=== PATIENT | female | born 1975 ===

== ENCOUNTER 2016-11-25 06:35 | Emergency (ER) | payer OTHER ==
[2016-11-25 06:44] VITALS: TEMP 98
--- NOTE | 2016-11-25 07:41 | C.PDOC ---
History Of Present Illness 41-year-old female, presents to the emergency department with complaints of right ankle pain. Patient states she had an inversion ankle injury, this morning. Pain is persistent in nature, and worse with weight bearing. No medications taken for relief. Patient denies numbness/weakness, or any other associated symptoms. Time Seen by Provider: 11/25/16 07:09 Chief Complaint (Nursing): Lower Extremity Problem/Injury History Per: Patient History/Exam Limitations: no limitations Current Symptoms Are (Timing): Still Present Severity: Moderate - Ankle/Foot Description Of Injury: Twisted Past Medical History Reviewed: Historical Data, Nursing Documentation, Vital Signs Vital Signs: Last Vital Signs Temp 98 F 11/25/16 06:39 Pulse 85 11/25/16 09:14 Resp 18 11/25/16 09:14 BP 116/74 11/25/16 09:14 Pulse Ox 99 11/25/16 09:14 - Medical History PMH: No Chronic Diseases Surgical History: Family History: States: No Known Family Hx - Social History Hx Tobacco Use: No Hx Alcohol Use: No Hx Substance Use: No - Immunization History Hx Tetanus Toxoid Vaccination: No Hx Influenza Vaccination: No Hx Pneumococcal Vaccination: No Review Of Systems Constitutional: Negative for: Fever Respiratory: Negative for: Shortness of Breath Gastrointestinal: Negative for: Nausea, Vomiting Musculoskeletal: Positive for: Other (R ankle pain.). Negative for: Back Pain, Leg Pain Neurological: Negative for: Weakness, Numbness, Headache Physical Exam - Physical Exam Appears: Non-toxic, No Acute Distress Skin: Warm, Dry, No Rash Head: Atraumatic, Normacephalic Eye(s): bilateral: Normal Inspection Nose: Normal Oral Mucosa: Moist Lips: Normal Appearing Neck: Normal ROM Respiratory: No Accessory Muscle Use Extremity: Normal ROM, Capillary Refill (<2 seconds), No Deformity, Other ( Right lateral malleolus: Tenderness to palpation and swelling) Pulses: Left Dorsalis Pedis: Normal, Right Dorsalis Pedis: Normal Neurological/Psych: Oriented x3, Normal Speech Gait: Unable To Assess ED Course And Treatment O2 Sat by Pulse Oximetry: 98 (room air) Pulse Ox Interpretation: Normal Medical Decision Making Medical Decision Making: Impression 41y/o F comes in for R ankle pain since this morning. Diff Dx (includes but not limited to) Fracture vs sprain Plan: * Tylenol * X-Ray: R Ankle, 3 View * Reassess and Disposition Xray reviewed showing no acute fracture or dislocation as read by me Aircast splint applied by CP. Patient advised to rest ice, elevate and take NSAID for any pain. Patient stable for discharge and instructed to follow up with ortho if pain persists Disposition Counseled Patient/Family Regarding: Diagnosis, Need For Followup, Rx Given - Disposition Referrals: Abel Felipe III, MD [Staff Provider] - Disposition: HOME/ ROUTINE Disposition Time: 09:02 Condition: STABLE Additional Instructions: Your xray was normal, no fracture. Please apply ice to area 15 minutes three times a day. Take Motrin as needed for pain every 6 hours, with food to not upset stomach. Follow up with orthopedic if pain persists over one week. Prescriptions: Ibuprofen [Motrin] 600 mg PO Q8 #30 tab Instructions: Ankle Sprain (ED) Forms: [employer] (Japanese) - POA Present On Arrival: None - Clinical Impression Clinical Impression: Ankle sprain - Scribe Statement The provider has reviewed the documentation as recorded by the Scribe (Praveen Hermosillo) All medical record entries made by the Scribe were at my direction and personally dictated by me. I have reviewed the chart and agree that the record accurately reflects my personal performance of the history, physical exam, medical decision making, and the department course for this patient. I have also personally directed, reviewed, and agree with the discharge instructions and disposition.
[2016-11-25 09:16] VITALS: BP 116/74; PULSE 85; RESP 18
--- NOTE | 2016-11-25 11:59 | RAD ---
PROCEDURE: Right Ankle Radiographs. HISTORY: pain to ankle COMPARISON: None FINDINGS: BONES: Normal. No fracture. JOINTS: Normal. No osteoarthritis. Ankle mortise maintained. Talar dome intact SOFT TISSUES: Normal. OTHER FINDINGS: None. IMPRESSION: Normal right ankle radiographs.
[2016-11-25 13:50] VITALS: O2SAT 98
== END 2016-11-25 09:20 | disposition home or self-care (01) ==
LOC: C.ER 06:35
DX: S93.401A Sprain of unspecified ligament of right ankle, initial encounter (principal); X50.1XXA Overexertion from prolonged static or awkward postures, initial encounter; Y93.01 Activity, walking, marching and hiking; Y92.414 Local residential or business street as the place of occurrence of the external cause

== ENCOUNTER 2017-02-22 19:36 | Emergency (ER) | payer OTHER ==
[2017-02-22 19:47] VITALS: O2SAT 98
--- NOTE | 2017-02-22 19:54 | C.PDOC ---
History Of Present Illness 41 year old female presents to ED complaining of left knee pain after trip and fall early this morning. Patient reports pain is worse with walking or movement. Denies any numbness, weakness or limited movement of extremity. Time Seen by Provider: 02/22/17 19:50 Chief Complaint (Nursing): Lower Extremity Problem/Injury History Per: Patient History/Exam Limitations: no limitations Onset/Duration Of Symptoms: Sudden Onset (today fell) Current Symptoms Are (Timing): Still Present Severity: Mild - Knee Description Of Injury: Fell Past Medical History Reviewed: Historical Data, Nursing Documentation, Vital Signs Vital Signs: Last Vital Signs Temp 98 F 02/22/17 20:36 Pulse 77 02/22/17 20:36 Resp 20 02/22/17 20:36 BP 131/70 02/22/17 20:36 Pulse Ox 98 02/22/17 20:40 - Medical History PMH: No Chronic Diseases Surgical History: Family History: States: Unknown Family Hx - Social History Hx Tobacco Use: No Hx Alcohol Use: No Hx Substance Use: No - Immunization History Hx Tetanus Toxoid Vaccination: No Hx Influenza Vaccination: No Hx Pneumococcal Vaccination: No Review Of Systems Except As Marked, All Systems Reviewed And Found Negative. Musculoskeletal: Positive for: Other (knee pain) Physical Exam - Physical Exam Appears: Non-toxic, No Acute Distress Skin: Ecchymosis (mild to left anterior knee) Head: Atraumatic, Normacephalic Eye(s): bilateral: Normal Inspection Neck: Normal ROM Chest: Symmetrical Extremity: Normal ROM (pain with flexion of left knee), Tenderness (anterior left knee), No Calf Tenderness, No Deformity, Swelling (mild to anterior left knee) Pulses: Left Dorsalis Pedis: Normal Neurological/Psych: Oriented x3, Normal Speech ED Course And Treatment O2 Sat by Pulse Oximetry: 98 Medical Decision Making Medical Decision Making: Impression: left knee pain s.p fall Plan: Xray of knee, ice pack, motrin PO Progress: Xray reviewed by me showing no acute fracture, dislocation or effusion Re-Eval: patient reports mild relief. Knee immobilizer applied by SHRUTHI Ardon. Patient advised to rest, ice, elevate and take NSAID for pain. May follow up with orthopedic Disposition Counseled Patient/Family Regarding: Diagnosis, Need For Followup, Rx Given - Disposition Referrals: Berenice Hermosillo MD [Staff Provider] - Disposition: HOME/ ROUTINE Disposition Time: 20:30 Condition: STABLE Additional Instructions: Your xray was normal, no fracture. Please apply ice to area 15 minutes three times a day. Take Motrin as needed for pain every 6 hours, with food to not upset stomach. Follow up with orthopedic if pain persists over one week Prescriptions: Ibuprofen [Motrin] 600 mg PO Q8 #30 tab Instructions: Knee Sprain (ED) Forms: [employer] (Algerian) - POA Present On Arrival: Falls Or Trauma - Clinical Impression Clinical Impression: Knee sprain
[2017-02-22 20:37] VITALS: BP 131/70; PULSE 77; RESP 20; TEMP 98
--- NOTE | 2017-02-23 09:57 | RAD ---
PROCEDURE: Left Knee Radiographs. HISTORY: Pain. COMPARISON: None. FINDINGS: BONES: No evidence of acute displaced fracture nor dislocation. The osseous structures appear intact. JOINTS: Joint spaces preserved. No significant osteoarthritis JOINT EFFUSION: Apparent small suprapatellar joint effusion is present. OTHER FINDINGS: None. IMPRESSION: No evidence of acute displaced fracture nor dislocation. Apparent small suprapatellar joint effusion. If symptoms persist or internal derangement suspected clinically consider followup MRI.
== END 2017-02-22 20:47 | disposition home or self-care (01) ==
LOC: C.ER 19:36
DX: S83.92XA Sprain of unspecified site of left knee, initial encounter (principal); W01.0XXA Fall on same level from slipping, tripping and stumbling without subsequent striking against object, initial encounter; Y92.89 Other specified places as the place of occurrence of the external cause